=== PATIENT | male | born 1985 | race Caucasian/White ===

== ENCOUNTER → 2019-11-11 15:14 | Outpatient (CLI) | payer OTHER, MEDICAID, SELFPAY ==
--- NOTE | 2019-11-11 15:26 | DI.RAD.S_ITS ---
PROCEDURE: XR CHEST 2V INDICATIONS: Cough TECHNIQUE: 2 views of the chest were acquired. COMPARISON: None. FINDINGS: Surgical changes and devices: None. Lungs and pleura: Lungs are clear. No pleural effusions or pneumothorax. Mediastinum: Mediastinal contours are normal. Heart size is normal. Bones and chest wall: No suspicious bony abnormalities. Soft tissues appear unremarkable. IMPRESSION: No acute disease. Dictated by: Peyman Car M.D. on 11/11/2019 at 15:46 Approved by: Peyman Car M.D. on 11/11/2019 at 15:47
[2019-11-11 16:34] LABS: Hemoglobin A1C% w Est Avg Glu 4.9 % (4.0-6.0)
[2019-11-11 16:39] LABS: Alanine Aminotransferase 86 IU/L (<50); Albumin 4.5 g/dL (3.5-5.0); Albumin Globulin Ratio 1.4 (1.0-2.8); Alkaline Phosphatase 103 U/L (38-126); Aspartate Aminotransferase 55 IU/L (17-59); BUN Creatinine Ratio 16.2 (6-22); Bilirubin Total 0.7 mg/dL (0.2-1.3); Blood Urea Nitrogen 11 mg/dL (9-20); Calcium 9.6 mg/dL (8.4-10.2); Carbon Dioxide 30 mmol/L (22-32); Chloride 103 mmol/L (98-107); Cholesterol 207 mg/dL (140-199); Estimated Glomerular Filt Rate > 60.0 mL/min (>60); Globulin 3.2 g/dL (1.7-4.1); Glucose 87 mg/dL (70-100); HDL Cholesterol 91 mg/dL (40-60); HEMOLYSIS < 15 (0-50); LDL Cholesterol Calculated 88 mg/dL (<100); Potassium 4.3 mmol/L (3.4-5.1); Sodium 140 mmol/L (137-145); Total Protein 7.7 g/dL (6.3-8.2); Triglycerides 140 mg/dL (35-150)
[2019-11-11 17:16] LABS: Creatinine Urine Random 122.6 mg/dL
[2019-11-11 17:21] LABS: Microalbumin Urine Random < 0.6 mg/dL (0-1.6)
== END ==
PROVIDERS: PCP Family Medicine; Referring Provider Family Medicine; Visit Provider Family Medicine
DX: Z00.01 Encounter for general adult medical examination with abnormal findings (principal); R05 Cough; R03.0 Elevated blood-pressure reading, without diagnosis of hypertension
CPT/HCPCS: 36415; 71046; 80053; 80061; 82043; 82570; 83036

== ENCOUNTER → 2019-11-15 16:19 | Outpatient (CLI) | payer OTHER, MEDICAID, SELFPAY ==
[2019-11-18 07:40] LABS: Fecal Immunochemical Test Negative (Negative)
== END ==
PROVIDERS: PCP Family Medicine; Referring Provider Family Medicine; Visit Provider Family Medicine
DX: K92.1 Melena (principal)
CPT/HCPCS: 82274

== ENCOUNTER → 2022-07-08 14:08 | Outpatient (CLI) | payer OTHER, MEDICAID, SELFPAY ==
--- NOTE | 2022-07-08 | DI.CT.S_ITS ---
PROCEDURE: CT SINUS SCREEN WO CON INDICATIONS: Chronic pansinusitis TECHNIQUE: Noncontrast 3.0 mm axial images acquired from the frontal sinuses to the mid-sella, with coronal and sagittal reformats. For radiation dose reduction, the following was used: automated exposure control, adjustment of mA and/or kV according to patient size. COMPARISON: None. FINDINGS: Image quality: Excellent. Sinuses: Very minimal trace mucosal thickening in the frontoethmoid recess. No fluid levels, mucous retention cysts or polyps are identified. Ostiomeatal Complexes: Ostiomeatal complexes are patent. No Michael cells. Miscellaneous: Visualized intra-orbital contents are normal. No jim bullosa. Paradoxical right middle turbinate curvature. Leftward nasal septal deviation. IMPRESSION: Minimal scattered mucosal thickening. Leftward nasal septal deviation. Ostiomeatal complexes are widely patent. Dictated by: Kristine Sloan M.D. on 07/08/2022 at 15:28 Approved by: Kristine Sloan M.D. on 07/08/2022 at 15:29
== END ==
PROVIDERS: PCP Family Medicine; Referring Provider Otolaryngology; Visit Provider Otolaryngology
DX: J32.4 Chronic pansinusitis (principal)
CPT/HCPCS: 70486

== ENCOUNTER 2022-11-10 11:58 | Day surgery (SDC) | payer OTHER, MEDICAID, SELFPAY ==
[2022-09-14 13:53] VITALS: BMI 28.2
[2022-11-10] MEDS: OXYMETAZOLINE NASAL SPRAY 30 ML 2 SPRAYS NASAL ×2 (12:22→14:04)
[2022-11-10 12:33] VITALS: BP 126/90; PULSE 84; RESP 16; TEMP 36.5; O2SAT 98; BMI 26.2
[2022-11-10] MEDS: LACTATED RINGERS 1,000 ML 42 ML IV (12:44)
--- NOTE | 2022-11-10 13:01 | PM.PREOP ---
Pre-operative Note Interval Note History & Physical reviewed/Exam performed by Physician: Yes Changes to H&P: No
--- NOTE | 2022-11-10 13:21 | P.HP_ITS ---
History of Present Illness History of Present Illness Date Patient Seen: 11/10/22 Chief complaint: Septoplasty Narrative: 37-year-old male with known nasal obstruction and significant septal deviation last seen in clinic 08/2622 presents for septoplasty and inferior turbinate reduction. No interval health changes, has stopped his naltrexone 2 weeks ago. Minimal URI symptoms a few weeks ago that have resolved. [facility] Medical History Alcohol use disorder Anxiety and depression Graff's esophagus Blood in stool Dysplastic nevus Family history of breast cancer Family history of cystic fibrosis Family history of lung cancer Fecal incontinence Glaucoma Hypertension Hyposmia Lipoma of back Surgical History Hx of colonoscopy Family History Father Cancer Grandmother Cancer Grandfather Cancer Grandmother Cancer Social History household members: family Smoking Status: Former smoker Tobacco: How many years used: 2 alcohol intake: former substance use type: former substance user and marijuana Meds Home Medications and Allergies Home Medications Medication Instructions Recorded Confirmed Type ascorbate calcium (vitamin C) PO 11/11/19 12/04/19 History cholecalciferol (vitamin D3) 200 mg PO DAILY 11/11/19 12/04/19 History bupropion HCl 75 mg tablet 75 mg PO BID 09/14/22 11/10/22 History naltrexone 50 mg tablet 50 mg PO DAILY 09/14/22 11/10/22 History Allergies Allergy/AdvReac Type Severity Reaction Status Date / Time No Known Drug Allergies Allergy Verified 11/10/22 12:18 Review of Systems Review of Systems Narrative: Negative except as listed in the HPI Exam Vital Signs (past 8 hours): - 11/10/22 12:33 Temperature 97.7 F Pulse Rate 84 Respiratory Rate 16 Blood Pressure 126/90 Pulse Oximetry 98 Oxygen Delivery Method Room Air Oxygen Delivery Method Room Air Narrative Exam Narrative: Well-developed well-nourished, heart regular rate and rhythm without murmur, lungs clear to auscultation bilaterally Assessment & Plan Assessment & Plan narrative: Assessment: Nasal airway obstruction, septal deviation, inferior turbinate hypertrophy, hyposmia Plan: Following discussion of the material risks benefits complications and alternatives, the patient elected to proceed.
--- NOTE | 2022-11-10 13:22 | P.OP_ITS ---
Operative Date/Time/Diagnoses Date of procedure: 11/10/22 Time of procedure: 15:00 Pre-op diagnosis: Nasal airway obstruction, septal deviation, inferior turbinate hypertrophy, hyposmia Post-op diagnosis: same Procedure & Clinicians Procedure: 1. Septoplasty 2. Bilateral inferior turbinate reduction via intramural cautery Same procedure as scheduled: Yes Indications: 37 Year old with the above diagnoses incompletely managed with medical therapy presents for the above procedure. Following discussion of the material risks benefits complications and alternatives, the parents elected to proceed. Surgeon: uKnal Travis Click Yes if Unassisted: Yes Anesthesia Type: General and Local Operative Notes Findings: 3+ left septal deviation including caudal septum bony and cartilaginous portion, right bony spur inf/ant to post/superior, RIGHT flap perforation over the spur, LEFT entirely intact. [id number]-left inferior turbinate hypertrophy Estimated Blood Loss (mL): 50 Procedure in detail: Following identification and confirmation of consent as well as preoperative Afrin nasal spray, the patient was brought to the operating room suite and placed in the supine position. General endotracheal anesthesia was administered. I infiltrated the septum widely bilaterally with 2% lidocaine 1 100,000 epinephrine followed by temporary packing with cotton with Afrin and 4% lidocaine. Following sterile prep and drape, the packing was removed and I performed a right betzy-transfixion incision, elevated the right muc operichondrial and mucoperiosteal flap. I disarticulated near the bony/cartilaginous junction and elevated the left mucoperiosteal flap. Deviated portions of the perpendicular plate of the ethmoid and vomer were resected. The residual quadrilateral cartilage was further straightened by trimming it inferiorly as well as reducing the maxillary crest. A 2 mm strip of cartilage paralleling the residual 1 cm dorsal and caudal strut was resected to further straighten the quadrilateral cartilage. The hemitransfixion incision was closed with interrupted 5 0 chromic followed by a running 4 0 plain gut mattress suture to reapproximate the septal flaps. At case completion, 20/1000th of an inch silastic splints were placed bilaterally, sutured anteriorly with a single 4 0 nylon. The head of each inferior turbinate had been previously infiltrated with additional local anesthetic and a 25 gauge spinal needle was used to impale the length of the turbinate, with cautery on a setting of 15 activated on slow withdrawal over 2 passes. The turbinates were then outfractured. The procedure completed, sponge and needle counts were correct and the patient was extubated in the operating room and taken to recovery room in stable condition without known complication. Complications: none Post-operative Condition: stable Disposition: same day surgery Plan for aftercare: Nasal saline every hour while awake, begin irrigations t.i.d. tomorrow if desire d. Polysporin to the nostrils at all times, Tylenol alternating with Advil for pain control, oxycodone for breakthrough pain. Elevate head of bed, no nose blowing, no straining for 2 weeks. Ice directly under the nose on the upper lip has tolerated 24-48 hours at a minimum. Follow-up in 1 week for nasal splint removal.
--- NOTE | 2022-11-10 13:57 | SUR.OPER ---
Supine on padded OR bed, head on pillow, arms padded and tucked at sides, legs uncrossed, safety belt at thigh, tape over blanket over lower legs .
[2022-11-10] MEDS: LIDOCAINE 4% SOLN 50 ML 20 ML TOP (14:03)
[2022-11-10] MEDS: LIDOCAINE 2% W/EPI INJ 20 ML INJ (14:03)
[2022-11-10 15:11] VITALS: BP 126/84; PULSE 77; RESP 14; TEMP 36.6; O2SAT 93
[2022-11-10 15:16] VITALS: BP 117/86; PULSE 90; RESP 12; O2SAT 96
[2022-11-10 15:21] VITALS: BP 124/85; PULSE 86; RESP 15; TEMP 36.3; O2SAT 97
[2022-11-10 15:29] VITALS: BP 134/94; PULSE 90; RESP 14; O2SAT 97
== END 2022-11-10 15:54 | disposition home or self-care (01) ==
PROVIDERS: PCP Family Medicine; Referring Provider Otolaryngology; Visit Provider Otolaryngology
PROC: (CPT 30520; principal; 2022-11-10 12:45)
DX: J34.89 Other specified disorders of nose and nasal sinuses (principal); J34.2 Deviated nasal septum; J34.3 Hypertrophy of nasal turbinates; R43.8 Other disturbances of smell and taste
CPT/HCPCS: 30520; 30802; J1100; J2405; J2704; J3010